=== PATIENT | female | born 1950 | race African-American/Black ===

== ENCOUNTER 2016-10-15 09:40 | Day surgery (SDC) | payer MEDICARE ==
[~2016-10-15 09:40] MED LIST: ASPI81TA82 PO; ATEN1TAB75 PO; CLON.2 PO; COZA50TA PO; LORTA5 PO; MAXZTAB PO
[2016-10-15] MEDS ORDERED: LACTATED RINGER'S 1000 ML IV SCH (10:00)
[2016-10-15] MEDS ORDERED: SODIUM CHLORID 0.9% 500 ML IV SCH (10:00)
[2016-10-15] MEDS ORDERED: INSULIN HUMAN REGULAR 1,000 UNITS/10 ML VIAL SQ PRN (10:15)
[2016-10-15] MEDS ORDERED: METOPROLOL TARTRATE 25 MG TAB PO PRN (10:15)
[2016-10-15] MEDS ORDERED: ASPIRIN-DIPYRIDAMOLE PO (10:45)
[2016-10-15] MEDS ORDERED: ATEN100T PO (10:45)
[2016-10-15] MEDS ORDERED: LUMI0.01 RIGHT EYE (10:45)
[2016-10-15] MEDS ORDERED: OMEG1000 PO (10:45)
[2016-10-15] MEDS ORDERED: GABA300C5 PO (10:45)
[2016-10-15] MEDS ORDERED: LATA0.002 EACH EYE (10:45)
[2016-10-15] MEDS ORDERED: ATOR10TA15 PO (10:45)
[2016-10-15] MEDS ORDERED: CLON0.3T PO (10:45)
[2016-10-15] MEDS ORDERED: REFR0.5D4 EACH EYE (10:45)
[2016-10-15] MEDS ORDERED: TRIA37.5 PO (10:45)
[2016-10-15] MEDS ORDERED: HERBAL PO (10:45)
[2016-10-15] MEDS ORDERED: ASPI1TAB69 PO (10:45)
[2016-10-15] MEDS ORDERED: METFPOW PO (10:45)
[2016-10-15] MEDS ORDERED: MONTPOW2 PO (10:45)
[2016-10-15] MEDS ORDERED: ERGO1CAP10 PO (10:45)
[2016-10-15] MEDS ORDERED: ZYRTTAB2 PO (10:45)
[2016-10-15] MEDS ORDERED: ESTE500T4 PO ×2 (10:45→10:47)
[2016-10-15] MEDS ORDERED: MULTI PO (10:45)
[2016-10-15] MEDS ORDERED: PROPOFOL 200 MG/20 ML AMP IV ONE (11:14)
[2016-10-15] MEDS ORDERED: MISCELLANEOUS NURSING INFORMATION XX PRN (12:30)
[2016-10-15] MEDS ORDERED: RIVAROXABAN 20 MG TAB PO SCH (12:45)
[2016-10-15] MEDS ORDERED: XARE20TA PO (12:46)
--- NOTE | 2016-10-15 13:04 | ETE ---
Study Study Date:10/15/2016 STUDY CONCLUSIONS SUMMARY - Left ventricle: The cavity size was normal. Wall thickness was normal. Systolic function was normal. The estimated ejection fraction was in the range of 55% to 60%. Wall motion was normal; there were no regional wall motion abnormalities. - Aortic valve: No evidence of vegetation. Mild regurgitation. - Mitral valve: No evidence of vegetation. Mild regurgitation. - Left atrium: No evidence of thrombus in the atrial cavity or appendage. - Right atrium: No evidence of thrombus in the atrial cavity or appendage. - Atrial septum: Agitated saline contrast study showed a [id number] shunt through a patent foramen ovale. There was an atrial septal aneurysm. - Tricuspid valve: No evidence of vegetation. - Pulmonic valve: No evidence of vegetation. If LV function is below 40, please consider prescribing an ACEI or ARB or document rationale for non-use. PROCEDURE DATA Consent: The risks, benefits, and alternatives to the procedure were explained to the patient and informed consent was obtained. Procedure: Initial setup. The patient was brought to the laboratory in the fasting state. Intravenous access was obtained. Surface ECG leads and pulse oximetric signals were monitored. Sedation. Conscious sedation was administered by cardiology staff. Transesophageal echocardiography. Topical anesthesia was obtained using viscous lidocaine. A transesophageal probe was inserted by the attending yeast maker. Image quality was good. Study completion: All IVs inserted during the procedure were removed. The patient tolerated the procedure well. There were no complications. Transesophageal echocardiography. 2D, complete spectral Doppler, and color Doppler. CARDIAC ANATOMY LEFT VENTRICLE: The cavity size was normal. Wall thickness was normal. Systolic function was normal. The estimated ejection fraction was in the range of 55% to 60%. Wall motion was normal; there were no regional wall motion abnormalities. AORTIC VALVE: Structurally normal valve. Trileaflet; normal thickness leaflets. Cusp separation was normal. No evidence of vegetation. Doppler: Mild regurgitation. Aorta: - There was no atheroma. There was no evidence for dissection. Aortic root: The aortic root was not dilated. Ascending aorta: The ascending aorta was normal in size. Aortic arch: The aortic arch was normal in size. Descending aorta: The descending aorta was normal in size. MITRAL VALVE: Structurally normal valve. Leaflet separation was normal. No evidence of vegetation. Doppler: Mild regurgitation. LEFT ATRIUM: The atrium was normal in size. No evidence of thrombus in the atrial cavity or appendage. The appendage was morphologically a left appendage, multilobulated, and of normal size. Emptying velocity was normal. ATRIAL SEPTUM: Agitated saline contrast study showed a [id number] shunt through a patent foramen ovale. There was an atrial septal aneurysm. RIGHT VENTRICLE: The cavity size was normal. Wall thickness was normal. Systolic function was normal. PULMONIC VALVE: Structurally normal valve. No evidence of vegetation. TRICUSPID VALVE: Structurally normal valve. Leaflet separation was normal. No evidence of vegetation. Doppler: Trace regurgitation. PULMONARY ARTERY: The main pulmonary artery was normal-sized. RIGHT ATRIUM: The atrium was normal in size. No evidence of thrombus in the atrial cavity or appendage. The appendage was morphologically a right appendage. PERICARDIUM: There was no pericardial effusion. Prepared and signed by Gordy Marcus [id number]
--- NOTE | 2016-10-15 13:38 | EKG ---
Date Performed: 10/15/2016 Time Performed: 10:46:04 PTAGE: 66 years EKG: Sinus bradycardia with 1st degree A-V block Right bundle branch block Abnormal ECG NO PREVIOUS TRACING DOCTOR: Wayne Gant Interpretating Date/Time 10/15/2016 13:36:25
== END 2016-10-15 14:51 | disposition home or self-care (01) ==
LOC: HDOC 09:40 → HDIC 09:41 → HDOC 14:51
PROVIDERS: ATTEND Internal Medicine
DX: Q21.1 Atrial septal defect (principal); I77.1 Stricture of artery; I10 Essential (primary) hypertension; E78.00 Pure hypercholesterolemia, unspecified; Z86.73 Personal history of transient ischemic attack (TIA), and cerebral infarction without residual deficits
CPT/HCPCS: 93005; 93312; 93320; 93325